=== PATIENT | male | born 1965 | race African-American/Black ===

== ENCOUNTER 2023-08-13 07:09 | Emergency (ER) | payer MEDICAID ==
[~2023-08-13] VITALS: Ht 185.4 cm; Wt 117.0 kg
[2023-08-13] MEDS ORDERED: IBUPROFEN 600 MG TABLET PO ONE (10:30)
[2023-08-13] MEDS ORDERED: IBUP-1955 PO (11:05)
[2023-08-13 11:24] VITALS: BP 138/155; TEMP 98.1; O2SAT 97
== END 2023-08-13 11:25 | disposition home or self-care (01) ==
LOC: ER 07:12
DX: S50.02XA Contusion of left elbow, initial encounter (principal); R07.89 Other chest pain; Z60.2 Problems related to living alone; V43.52XA Car driver injured in collision with other type car in traffic accident, initial encounter; Y93.89 Activity, other specified; Y92.488 Other paved roadways as the place of occurrence of the external cause; Y99.8 Other external cause status
CPT/HCPCS: 71045-TC; 73030-TC; 73080-TC

== ENCOUNTER 2023-12-17 06:22 | Emergency (ER) | payer MEDICAID ==
[~2023-12-17] VITALS: Ht 185.4 cm; Wt 110.7 kg
[~2023-12-17 06:22] MED LIST: IBUP-1955 PO
[2023-12-17] MEDS ORDERED: CEFTRIAXONE 1 G VIAL ONE (06:36)
[2023-12-17] MEDS: CEFTRIAXONE 1 G VIAL IM ONE (06:41)
[2023-12-17 06:55] LABS: APPEARANCE,URINE CLEAR (CLEAR); BILIRUBIN,URINE NEGATIVE (NEGATIVE); BLOOD, URINE NEGATIVE Ery/uL (NEGATIVE); COLOR,URINE YELLOW (YELLOW); KETONES,URINE NEGATIVE (NEGATIVE); LEUKOCYTE ESTERASE ,URINE NEGATIVE (NEGATIVE); NITRITE, URINE NEGATIVE (NEGATIVE); PROTEIN,URINE NEGATIVE (NEGATIVE); UGLUCOSE NEGATIVE (NEGATIVE)
[2023-12-17 06:58] LABS: ADD URINE CULTURE NO; BACTERIA,URINE Rare /HPF (None Seen); RBC,URINE 0-2 /HPF (0-2); SQUAMOUS EPITHELIAL CELL,UR Few /HPF (None Seen); WBC,URINE 0-2 /HPF (0-3)
[2023-12-17] MEDS ORDERED: DOXY100C2 PO (07:09)
[2023-12-17 07:22] VITALS: BP 130/80; TEMP 98.6; O2SAT 99
[2023-12-18 20:09] LABS: CHLAMYDIA TRACHOMATIS NAA Negative (Negative); NEISSERIA GONORRHOEAE NAA Negative (Negative)
== END 2023-12-17 07:21 | disposition home or self-care (01) ==
LOC: ER 06:24
DX: A64 Unspecified sexually transmitted disease (principal)
CPT/HCPCS: 99283; 96372; 81001; 87491; 87591; J0696

== ENCOUNTER 2024-09-01 05:39 | Emergency (ER) | payer OTHER ==
[~2024-09-01] VITALS: Ht 185.4 cm; Wt 116.1 kg
[~2024-09-01 05:39] MED LIST changes: +DOXY100C2 PO
[2024-09-01] MEDS ORDERED: METOPROLOL TARTRATE INJ 5 MG/5 ML AMPUL ONE (06:39)
[2024-09-01] MEDS ORDERED: METOPROLOL SUCCINATE 25 MG TAB.SR.24H ONE (06:40)
[2024-09-01 06:48] LABS: BASOPHILS % (AUTO) 0.6 % (0.0-2.0); EOSINOPHILS % (AUTO) 0.8 % (0.0-6.0); HEMATOCRIT 50 % (39-51); HEMOGLOBIN 16.6 g/dL (13.5-17.5); LYMPHOCYTES # (AUTO) 2.5 K/uL (0.8-4.8); LYMPHOCYTES % (AUTO) 38.5 % (20.0-44.0); MEAN CORPUSCULAR HEMOGLOBIN 28 PG (26.0-33.0); MEAN CORPUSCULAR HGB CONC 33 g/dl (31.0-36.0); MEAN CORPUSCULAR VOLUME 84 fL (80-96); MONOCYTES # (AUTO) 0.5 K/uL (0.1-1.30); MONOCYTES % (AUTO) 7.1 % (2.0-12.0); NEUTROPHILS # (AUTO) 3.4 K/uL (1.8-8.9); PLATELET COUNT (AUTO) 320 K/uL (150-450); RED BLOOD CELL COUNT(AUTO) 5.95 MIL/uL (4.5-6.0); RED CELL DISTRIBUTION WIDTH 14.8 % (11.5-15.0); WHITE BLOOD COUNT (AUTO) 6.5 K/uL (4.3-11.0)
[2024-09-01] MEDS: METOPROLOL SUCCINATE 50 MG TAB.SR.24H PO SCH (06:49)
[2024-09-01] MEDS: METOPROLOL TARTRATE INJ 5 MG/5 ML AMPUL IV ONE (06:49)
[2024-09-01 06:52] LABS: MAGNESIUM 2.2 mg/dL (1.8-2.4)
[2024-09-01 06:53] LABS: CARBON DIOXIDE 25 mmol/L (21-32); CHLORIDE 104 mmol/L (98-107); CREATININE 1.1 mg/dL (0.6-1.3); GLUCOSE 122 mg/dL (74-106); POTASSIUM 3.9 mmol/L (3.5-5.1); SODIUM SERUM 137 mmol/L (136-145); UREA NITROGEN, BLOOD 14 mg/dL (7-18)
[2024-09-01 07:07] LABS: NT-PRO BNP 17 pg/mL (0-125)
[2024-09-01 07:09] LABS: THYROID STIMULATING HORMONE 1.1 uIU/mL (0.358-3.74)
[2024-09-01] MEDS ORDERED: RIVA10TA PO (08:04)
[2024-09-01] MEDS ORDERED: METO-358 PO (08:04)
[2024-09-01] MEDS ORDERED: APIX5TAB PO (08:17)
[2024-09-01] MEDS ORDERED: METO-357 PO (08:17)
[2024-09-01 08:26] VITALS: BP 118/69; TEMP 98.3; O2SAT 98
== END 2024-09-01 08:27 | disposition home or self-care (01) ==
LOC: ER 05:39
DX: I48.91 Unspecified atrial fibrillation (principal); R00.2 Palpitations; R07.89 Other chest pain; E11.9 Type 2 diabetes mellitus without complications; E66.9 Obesity, unspecified; F17.210 Nicotine dependence, cigarettes, uncomplicated; Z68.33 Body mass index [BMI] 33.0-33.9, adult; Z79.01 Long term (current) use of anticoagulants; Z79.899 Other long term (current) drug therapy; Z60.2 Problems related to living alone
CPT/HCPCS: 99285; 96374; 71045; 93005 ×2; 85025; 80048; 83735; 36415; 84439; 84443; 84484 ×2; 83880; J3490

== ENCOUNTER 2025-02-02 05:32 | Emergency (ER) | payer OTHER ==
[~2025-02-02] VITALS: Ht 185.4 cm; Wt 113.4 kg
[~2025-02-02 05:32] MED LIST changes: +APIX5TAB PO; -DOXY100C2 PO; -IBUP-1955 PO; +METO-357 PO; +METO-358 PO; +RIVA10TA PO
[2025-02-02] MEDS ORDERED: DOXY100C2 PO (06:36)
[2025-02-02] MEDS ORDERED: CEFTRIAXONE 500 MG VIAL ONE (06:46)
[2025-02-02] MEDS ORDERED: METRONIDAZOLE 500 MG TABLET ONE (06:46)
[2025-02-02] MEDS: METRONIDAZOLE 500 MG TABLET PO ONE (06:53)
[2025-02-02] MEDS: CEFTRIAXONE 1 G VIAL IM ONE (06:53)
[2025-02-02 06:54] VITALS: BP 133/85; TEMP 98; O2SAT 97
[2025-02-02 16:04] LABS: HIV-1/2 ANTIBODY NON REACTIVE (NONREACTIVE)
[2025-02-03 07:07] LABS: RAPID PLASMA REAGIN QUAL. Non Reactive (Non Reactive)
[2025-02-03 16:09] LABS: CHLAMYDIA TRACHOMATIS NAA Negative (Negative); NEISSERIA GONORRHOEAE NAA Negative (Negative)
== END 2025-02-02 06:54 | disposition home or self-care (01) ==
LOC: ER 05:35
DX: Z11.3 Encounter for screening for infections with a predominantly sexual mode of transmission (principal); E11.9 Type 2 diabetes mellitus without complications; F17.210 Nicotine dependence, cigarettes, uncomplicated; I48.91 Unspecified atrial fibrillation; Z79.01 Long term (current) use of anticoagulants; Z79.899 Other long term (current) drug therapy
CPT/HCPCS: 99283; 86593; 86592; 96372; 36415; 87806; 87491; 87591; J0696